=== PATIENT | female | born 1970 | race Caucasian/White ===

== ENCOUNTER 2016-06-11 23:24 | Emergency (ER) | payer OTHER ==
[~2016-06-11] VITALS: Ht 167.6 cm; Wt 50.0 kg
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
[2016-06-12 00:15] VITALS: BP 123/86; PULSE 100; RESP 20; TEMP 97.5; O2SAT 99
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
[2016-06-12 01:01] LABS: AMPHETAMINE, URINE NEG (NEG); BARBITURATES, URINE NEG (NEG); COCAINE, URINE NEG (NEG)
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
== END 2016-06-12 01:24 | disposition left against medical advice (07) ==
LOC: PHED 23:24
DX: R51 Headache (principal); Z53.20 Procedure and treatment not carried out because of patient's decision for unspecified reasons; V49.60XA Unspecified car occupant injured in collision with unspecified motor vehicles in traffic accident, initial encounter
CPT/HCPCS: 70450; 71010; 72125; 80307

== ENCOUNTER 2016-06-14 18:56 | Emergency (ER) | payer OTHER ==
[~2016-06-14] VITALS: Ht 167.6 cm; Wt 50.0 kg
[2016-06-14 19:32] VITALS: BP 95/56; PULSE 88; RESP 18; TEMP 97.8; O2SAT 98
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
[2016-06-14] MEDS ORDERED: SODIUM CHLOR 0.9% 1000 ML INJ 1,000 ML IV ONE (20:00)
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
[2016-06-14 20:20] LABS: HEMATOCRIT 41.1 % (35.0-46.0); MEAN CELL VOLUME 100.3 FL (80.0-100.0); MEAN CORPUSCULAR HEMOGLOBIN 34.3 PG (27.0-34.0); MEAN CORPUSCULAR HGB CONC 34.2 % (32.0-36.0); PLATELET COUNT 146 TH/MM3 (150-450); RED CELL DISTRIBUTION WIDTH 13.8 % (11.6-17.2); WHITE BLOOD COUNT 4.8 TH/MM3 (4.0-11.0)
[2016-06-14 20:23] LABS: HEMO FLAGS AUTO DIFF
[2016-06-14 20:44] LABS: ACETAMINOPHEN LESS THAN 2.0 MCG/ML (10.0-30.0); ALKALINE PHOSPHATASE 71 U/L (45-117); ALT (GPT) 21 U/L (10-53); ANION GAP 8 MEQ/L (5-15); AST (GOT) 43 U/L (15-37); BLOOD UREA NITROGEN 5 MG/DL (7-18); CALCIUM-PROTEIN CORRECTED 7.8 MG/DL (8.5-10.1); CHLORIDE 106 MEQ/L (98-107); GLOMERULAR FILTRATION RATE 114 ML/MIN (>89); POTASSIUM 3.6 MEQ/L (3.5-5.1); SODIUM (NA) 142 MEQ/L (136-145); TOTAL BILIRUBIN ADULT 0.3 MG/DL (0.2-1.0)
[2016-06-14 20:53] LABS: BANDS 1 % (0-6); BASOPHILS 4 % (0-2); CORRECTED NUCLEATED RBC 1 /100 WBC (0-0); EOSINOPHILS 2 % (0-4); NEUTROPHIL # MANUAL DIFF 1.4 TH/MM3 (1.8-7.7); POLYS (SEG NEUTROPHILS) 29 % (16-70); WBC DIFF SAMPLE 100
[2016-06-14 20:54] LABS: OVALOCYTES 1+ (NORMAL)
[2016-06-14 20:56] LABS: PLATELET ESTIMATE SMEAR LOW (NORMAL); PLATELET MORPHOLOGY NORMAL (NORMAL)
[2016-06-14 20:57] LABS: SCAN/DIFF FINAL DIFF MANUAL
[2016-06-14 23:00] VITALS: BP 100/58; PULSE 88; RESP 18; O2SAT 95
[2016-06-15 03:00] VITALS: BP 97/56; PULSE 86; RESP 18; O2SAT 95
[2016-06-15 06:00] VITALS: BP 96/54; PULSE 87; RESP 18; O2SAT 95
== END 2016-06-15 12:45 | disposition home or self-care (01) ==
LOC: NEPA 18:56
DX: F10.94 Alcohol use, unspecified with alcohol-induced mood disorder (principal); F41.8 Other specified anxiety disorders; F17.210 Nicotine dependence, cigarettes, uncomplicated; B19.20 Unspecified viral hepatitis C without hepatic coma; Y90.8 Blood alcohol level of 240 mg/100 ml or more
CPT/HCPCS: 70450; 80053; 80307; 85007; 85027; 96360; 96361; 99285; J7030

== ENCOUNTER 2016-07-09 08:31 | Emergency (ER) | payer SELFPAY ==
[~2016-07-09] VITALS: Ht 167.6 cm; Wt 46.9 kg
[2016-07-09 08:38] VITALS: BP 105/82; PULSE 95; RESP 18; TEMP 97.9; O2SAT 97
[2016-07-09] MEDS ORDERED: SULF10SO3 EACH EYE (09:00)
--- NOTE | 2016-07-09 09:01 | PD ---
HPI Chief Complaint: Eye Problems/Injury Time Seen by Provider: 08:51 Travel History International Travel<30 days: No Contact w/Intl Traveler<30days: No Traveled to known affect area: No History of Present Illness HPI This 46-year-old female is complaining of crusting in her eyes. She says when she wakes up she has to force her eyes open because of the large amount of crust. She has not had fever or chills. It oozes sporadically throughout the day. She does have some photophobia. There is no history of trauma. Both eyes were affected PFSH Past Medical History Autoimmune Disease: No Anxiety: Yes Depression: Yes Cancer: No Cardiovascular Problems: No Diabetes: No Diminished Hearing: No Endocrine: No Gastrointestinal Disorders: No Genitourinary: No Hepatitis: Yes (C) Hiatal Hernia: No Immune Disorder: No Musculoskeletal: No Neurologic: No Psychiatric: No Reproductive: No Respiratory: No Thyroid Disease: No Influenza Vaccination: No ?: Not Menopausal: Yes : 4 Para: 0 Miscarriage: 1 : 3 Past Surgical History AICD: No Eye Surgery: Yes (LEFT EYE) Joint Replacement: No Pacemaker: No Other Surgery: Yes (LEFT ARM ABCESS) Social History Alcohol Use: Yes (Occasionally per patient) Tobacco Use: Yes (1/2 PPD) Substance Use: No Allergies-Medications (Allergen,Severity, Reaction): Coded Allergies: Fire Ant (Verified Allergy, Severe, Anaphylaxis, 07/09/16) *MDRO Multi-Drug Resistant Organism (Verified Allergy, Unknown, 07/09/16) ESBL Klebsiella pneumonie 2013 Reported Meds & Prescriptions Reported Meds & Active Scripts Active No Active Prescriptions or Reported Medications Review of Systems General / Constitutional: No: Fever, Chills Eyes: Positive: Photophobia, Redness, Foreign Body Sensation, Tearing HENT: No: Headaches, Vertigo Cardiovascular: No: Chest Pain or Discomfort, Palpitations Respiratory: No: Cough, Shortness of Breath Gastrointestinal: No: Nausea, Vomiting Genitourinary: No: Urgency, Frequency Hematologic/Lymphatic: No: Easy Bruising Physical Exam Narrative GENERAL: Thin female SKIN: Focused skin assessment warm/dry. HEAD: Atraumatic. Normocephalic. EYES: Pupils equal and round and reactive. There is bilateral conjunctival injection. There is a small amount of drainage from the eye. The anterior chambers are clear. ENT: No nasal bleeding or discharge. Mucous membranes pink and moist. NECK: Trachea midline. No JVD. CARDIOVASCULAR: Regular rate and rhythm. No murmur appreciated. RESPIRATORY: No accessory muscle use. Clear to auscultation. Breath sounds equal bilaterally. GASTROINTESTINAL: Abdomen soft, non-tender, nondistended. Hepatic and splenic margins not palpable. MUSCULOSKELETAL: No obvious deformities. No clubbing. No cyanosis. No edema. NEUROLOGICAL: Awake and alert. No obvious cranial nerve deficits. Motor grossly within normal limits. Normal speech. PSYCHIATRIC: Appropriate mood and affect; insight and judgment normal. Data Data Last Documented VS Vital Signs Date Time Temp Pulse Resp B/P Pulse Ox O2 Delivery O2 Flow Rate FiO2 07/09/16 08:38 97.9 95 18 105/82 97 MDM Medical Decision Making Medical Screen Exam Complete: Yes Emergency Medical Condition: Yes Medical Record Reviewed: Yes Differential Diagnosis Differential includes conjunctivitis, allergic conjunctivitis Narrative Course Patient will be treated with sulfacetamide drops Diagnosis Primary Impression: Conjunctivitis Qualified Code: H10.9 - Conjunctivitis of both eyes, unspecified conjunctivitis type Scripts Sulfacetamide Opth Drops 10 % Soln1 Drop EACH EYE Q4HR #1 BOTTLE Ref 0 Prov:Cleveland Rodas MD 07/09/16 Disposition: 01 DISCHARGE HOME Condition: Stable Cleveland Rodas MD Jul 09, 2016 09:01
== END 2016-07-09 09:06 | disposition home or self-care (01) ==
LOC: PHED 08:31
DX: H10.33 Unspecified acute conjunctivitis, bilateral (principal); F41.8 Other specified anxiety disorders; K75.9 Inflammatory liver disease, unspecified; F17.210 Nicotine dependence, cigarettes, uncomplicated
CPT/HCPCS: 99282

== ENCOUNTER 2017-04-10 05:21 | Emergency (ER) | payer SELFPAY ==
[~2017-04-10] VITALS: Ht 167.6 cm; Wt 47.1 kg
[~2017-04-10 05:21] MED LIST: SULF10SO3 EACH EYE
[2017-04-10 05:27] VITALS: BP 131/81; PULSE 103; RESP 22; TEMP 98.1; O2SAT 97
--- NOTE | 2017-04-10 05:52 | PD ---
HPI Chief Complaint: Cold / Flu Symptoms Time Seen by Provider: 05:32 Travel History International Travel<30 days: No Contact w/Intl Traveler<30days: No Traveled to known affect area: No History of Present Illness HPI The patient is a 46-year-old female that states she has had a cough, sharp, pleuritic chest pain on her right anterior ribs and short of breath for one week. The patient smokes one half pack of cigars daily. She does have a history of alcohol and cocaine abuse. She cannot tell me when her last alcohol was. She states her fever is 99.9 two days ago. PFSH Past Medical History Autoimmune Disease: No Anxiety: Yes Depression: Yes Cancer: No Cardiovascular Problems: No Diabetes: No Diminished Hearing: No Endocrine: No Gastrointestinal Disorders: No Genitourinary: No Hepatitis: Yes (C) Hiatal Hernia: No Immune Disorder: No Musculoskeletal: No Neurologic: No Psychiatric: No Reproductive: No Respiratory: No Thyroid Disease: No Tetanus Vaccination: > 5 Years Influenza Vaccination: No ?: Not Menopausal: Yes : 4 Para: 0 Miscarriage: 1 : 3 Past Surgical History AICD: No Eye Surgery: Yes (LEFT EYE) Joint Replacement: No Pacemaker: No Other Surgery: Yes (LEFT ARM ABCESS) Social History Alcohol Use: Yes (Occasionally per patient) Tobacco Use: Yes (1/2 PPD) Substance Use: No (former ) Allergies-Medications (Allergen,Severity, Reaction): Coded Allergies: fire ant (Unverified Allergy, Severe, Anaphylaxis, 11/10/16) *MDRO Multi-Drug Resistant Organism (Verified Allergy, Unknown, 07/09/16) ESBL Klebsiella pneumonie 2013 Reported Meds & Prescriptions Reported Meds & Active Scripts Active Zithromax Z-Lakhwinder (Azithromycin) 250 Mg Dspk 250 Mg PO DIRECTED 500 MG (2 tabs) day 1, then 1 tab days 2-5. Ibuprofen 600 Mg Tab 600 Mg PO TID Sulfacetamide Opth Drops 10 % Soln 1 Drop EACH EYE Q4HR Review of Systems Except as stated in HPI: all other systems reviewed are Neg Physical Exam Narrative GENERAL: The patient is alert, oriented 3 and slight apparent distress with her right anterior chest pain. Her vital signs show heart rate of 103 but otherwise normal. SKIN: Focused skin assessment warm/dry. No definite needle tracks are seen but there are some wolff and bruises on the volar forearms that are slightly suspicious. HEAD: Atraumatic. Normocephalic. EYES: Pupils equal and round. No scleral icterus. No injection or drainage. ENT: No nasal bleeding or discharge. Mucous membranes pink and moist. NECK: Trachea midline. No JVD. CARDIOVASCULAR: Regular rate and rhythm. No murmur appreciated. RESPIRATORY: No accessory muscle use. Clear to auscultation. Breath sounds equal bilaterally. The patient has tenderness on the right anterior chest wall. Pressure on this area completely reproduces the patient's pain. GASTROINTESTINAL: Abdomen soft, non-tender, nondistended. Hepatic and splenic margins not palpable. MUSCULOSKELETAL: No obvious deformities. No clubbing. No cyanosis. No edema. NEUROLOGICAL: Awake and alert. No obvious cranial nerve deficits. Motor grossly within normal limits. Normal speech. PSYCHIATRIC: Appropriate mood and affect; insight and judgment normal. Data Data Last Documented VS Vital Signs Date Time Temp Pulse Resp B/P (MAP) Pulse Ox O2 Delivery O2 Flow Rate FiO2 04/10/17 06:27 131/81 (98) 135/77 (96) 04/10/17 06:23 98 04/10/17 06:22 Room Air 04/10/17 05:27 98.1 103 22 Orders Orders Electrocardiogram (04/10/17 05:52) Basic Metabolic Panel (Bmp) (04/10/17 05:52) Ckmb (Isoenzyme) Profile (04/10/17 05:52) Complete Blood Count With Diff (04/10/17 05:52) Magnesium (Mg) (04/10/17 05:52) Troponin I (04/10/17 05:52) Ecg Monitoring (04/10/17 05:52) Bilateral Bp Monitoring (04/10/17 05:52) Iv Access Insert/Monitor (04/10/17 05:52) Oximetry (04/10/17 05:52) Oxygen Administration (04/10/17 05:52) Sodium Chloride 0.9% Flush (Ns Flush) (04/10/17 06:00) Chest, Pa & Lat (04/10/17 05:52) Beta Hcg (Quant/Titer) (04/10/17 05:52) Urinalysis - C+S If Indicated (04/10/17 05:58) Drug Screen, Random Urine (04/10/17 05:58) Alcohol (Ethanol) (04/10/17 05:52) Ketorolac Inj (Toradol Inj) (04/10/17 07:15) Potassium Chloride (Kcl) (04/10/17 07:15) Labs Laboratory Tests Test 04/10/17 06:15 04/10/17 06:45 Urine Collection Type CATH Urine Color YELLOW Urine Turbidity CLEAR Urine pH 5.5 Urine Specific Dewitt 1.007 Urine Protein NEG mg/dL Urine Glucose (UA) NEG mg/dL Urine Ketones NEG mg/dL Urine Occult Blood NEG Urine Nitrite NEG Urine Bilirubin NEG Urine Leukocyte Esterase NEG Urine RBC 0-3 /hpf Urine Squamous Epithelial Cells 0-5 /hpf Microscopic Urinalysis Comment CATH-CULT NOT IND Urine Collection Time 06:15 Urine Opiates Screen NEG Urine Barbiturates Screen NEG Urine Amphetamines Screen NEG Urine Benzodiazepines Screen NEG Urine Cocaine Screen NEG Urine Cannabinoids Screen NEG White Blood Count 4.7 TH/MM3 Red Blood Count 4.76 MIL/MM3 Hemoglobin 15.3 GM/DL Hematocrit 45.7 % Mean Corpuscular Volume 96.1 FL Mean Corpuscular Hemoglobin 32.2 PG Mean Corpuscular Hemoglobin Concent 33.5 % Red Cell Distribution Width 13.0 % Platelet Count 168 TH/MM3 Mean Platelet Volume 6.7 FL Neutrophils (%) (Auto) 27.8 % Lymphocytes (%) (Auto) 56.4 % Monocytes (%) (Auto) 14.8 % Eosinophils (%) (Auto) 0.5 % Basophils (%) (Auto) 0.5 % Neutrophils # (Auto) 1.3 TH/MM3 Lymphocytes # (Auto) 2.7 TH/MM3 Monocytes # (Auto) 0.7 TH/MM3 Eosinophils # (Auto) 0.0 TH/MM3 Basophils # (Auto) 0.0 TH/MM3 CBC Comment DIFF FINAL Differential Comment Blood Urea Nitrogen 2 MG/DL Creatinine 0.46 MG/DL Random Glucose 77 MG/DL Calcium Level 8.3 MG/DL Magnesium Level 1.9 MG/DL Sodium Level 137 MEQ/L Potassium Level 3.1 MEQ/L Chloride Level 100 MEQ/L Carbon Dioxide Level 27.8 MEQ/L Anion Gap 9 MEQ/L Estimat Glomerular Filtration Rate 146 ML/MIN Total Creatine Kinase 100 U/L Troponin I LESS THAN 0.02 NG/ML Human Chorionic Gonadotropin, Quant LESS THAN 1 MIU/ML Ethyl Alcohol Level 299 MG/DL [facility] Medical Decision Making Medical Screen Exam Complete: Yes Emergency Medical Condition: Yes Medical Record Reviewed: Yes Interpretation(s) The EKG shows sinus rhythm with an incomplete right bundle-branch block and the ventricular rate is 84. No acute ST elevation or depression is present. The chest x-ray is normal. The urine toxicology screen is negative for all drugs tested. The alcohol level is 299. The CBC is normal. The basic metabolic profile shows a potassium 3.1, calcium of 8.3 but is otherwise normal. Cardiac enzymes are normal and the beta-hCG is less than 1. The urinalysis is normal and culture is not indicated. Differential Diagnosis Chest wall pain, pneumonia, acute coronary syndrome-highly unlikely, alcohol intoxication, other drug intoxication, bronchitis Narrative Course The patient appears to have chest wall pain. She will be given ibuprofen. She also has alcohol intoxication. Diagnosis Primary Impression: Chest wall pain Additional Impressions: Alcohol intoxication Alcohol abuse with alcohol-induced mood disorder Additional Instructions: As we discussed, discontinue alcohol. Also, take the Motrin 3 times daily. Scripts Azithromycin (Zithromax Z-Lakhwinder) 250 Mg Dspk 250 MG PO DIRECTED for Infection, #1 DSPK 0 Refills 500 MG (2 tabs) day 1, then 1 tab days 2-5. Prov: Jefferson Gilliam MD 04/10/17 Ibuprofen (Ibuprofen) 600 Mg Tab 600 MG PO TID, #44 TAB 0 Refills Prov: Jefferson Gilliam MD 04/10/17 Disposition: 01 DISCHARGE HOME Condition: Stable Jefferson Gilliam MD Apr 10, 2017 05:52
[2017-04-10] MEDS ORDERED: SODIUM CHLORIDE 0.9% FLUSH 10 ML FLUSH IVF PRN (06:00)
[2017-04-10 06:23] VITALS: O2SAT 98
--- NOTE | 2017-04-10 06:26 | RADRPT ---
EXAM DATE/TIME: 04/10/2017 06:06 [place] COMPARISON: No previous studies available for comparison. INDICATIONS : Cough, shortness of breath, and pain under right breast. MEDICAL HISTORY : Hepatitis C. SURGICAL HISTORY : None. ENCOUNTER: Initial ACUITY: 1 week PAIN SCORE: 7/10 LOCATION: Bilateral chest FINDINGS: PA and lateral views of the chest demonstrate the lungs to be symmetrically aerated without evidence of mass, infiltrate or effusion. The cardiomediastinal contours are unremarkable. Osseous structure s are intact. CONCLUSION: Normal examination for a patient of this age. Jeremiah Cho MD on April 10, 2017 at 6:23 Board Certified Radiologist. This report was verified electronically.
[2017-04-10 06:27] VITALS: BP_SYST 131; BP_SYST 135; BP_DIAS 77; BP_DIAS 81
[2017-04-10 06:33] LABS: BILIRUBIN, URINE NEG (NEG); BLOOD, URINE NEG (NEG); GLUCOSE,URINE NEG (NEG); KETONE, URINE NEG (NEG); NITRITE,URINE NEG (NEG); PH, URINE 5.5 (5.0-8.5); URINE LEUKOCYTE ESTERASE NEG (NEG)
[2017-04-10 06:41] LABS: URINE COLOR YELLOW (YELLW/STRAW)
[2017-04-10 06:42] LABS: RBC, URINE 0-3 /hpf (0-3); SQUAMOUS EPITHELIAL CELL URINE 0-5 /hpf (0-5)
[2017-04-10 06:58] LABS: AUTOMATED NEUTROPHIL # 1.3 TH/MM3 (1.8-7.7); BASOPHIL % 0.5 % (0.0-2.0); EOSINOPHIL % 0.5 % (0.0-4.0); HEMATOCRIT 45.7 % (35.0-46.0); HEMOGLOBIN 15.3 GM/DL (11.6-15.3); LYMPH % 56.4 % (9.0-44.0); LYMPHOCYTE # 2.7 TH/MM3 (1.0-4.8); MEAN CELL VOLUME 96.1 FL (80.0-100.0); MEAN CORPUSCULAR HEMOGLOBIN 32.2 PG (27.0-34.0); MEAN CORPUSCULAR HGB CONC 33.5 % (32.0-36.0); MEAN PLATELET VOLUME 6.7 FL (7.0-11.0); MONO % 14.8 % (0.0-8.0); MONOCYTE # 0.7 TH/MM3 (0-0.9); NEUT % 27.8 % (16.0-70.0); PLATELET COUNT 168 TH/MM3 (150-450); RED BLOOD COUNT 4.76 MIL/MM3 (4.00-5.30); WHITE BLOOD COUNT 4.7 TH/MM3 (4.0-11.0)
[2017-04-10 07:03] LABS: CHLORIDE 100 MEQ/L (98-107); SODIUM (NA) 137 MEQ/L (136-145)
[2017-04-10] MEDS ORDERED: IBUP-232 PO (07:03)
[2017-04-10 07:05] LABS: CALCIUM 8.3 MG/DL (8.5-10.1)
[2017-04-10 07:06] LABS: BICARBONATE 27.8 MEQ/L (21.0-32.0); BLOOD UREA NITROGEN 2 MG/DL (7-18); GLUCOSE,RANDOM 77 MG/DL (74-106); MAGNESIUM 1.9 MG/DL (1.5-2.5)
[2017-04-10] MEDS ORDERED: ZITHTAB PO (07:08)
[2017-04-10 07:09] LABS: CREATININE 0.46 MG/DL (0.50-1.00); GLOMERULAR FILTRATION RATE 146 ML/MIN (>89)
[2017-04-10 07:14] LABS: TROPONIN I LESS THAN 0.02 NG/ML (0.02-0.05)
[2017-04-10] MEDS ORDERED: KETOROLAC TROMETHAMINE 60 MG/2 ML (IM) VIAL IVP ONE (07:15)
[2017-04-10] MEDS ORDERED: POTASSIUM CHLORIDE 20 MEQ CONTROLLED RELEASE TAB PO ONE (07:15)
[2017-04-10 07:27] VITALS: BP 144/78; PULSE 80; RESP 16; O2SAT 96
[2017-04-10 07:31] VITALS: BP 103/70; PULSE 88; RESP 16; TEMP 98.3; O2SAT 96
--- NOTE | 2017-04-10 15:58 | EKG ---
Date Performed: 04/10/2017 Time Performed: 06:33:12 PTAGE: 46 years EKG: Sinus rhythm RSR' pattern in V1 Since previous tracing, no significant change noted BORDERLINE ECG PREVIOUS TRACING : 10/26/2014 06.53 DOCTOR: Olivier Gutierrez Interpretating Date/Time 04/10/2017 15:56:39
== END 2017-04-10 07:44 | disposition home or self-care (01) ==
LOC: PHED 05:21
DX: R07.89 Other chest pain (principal); F10.129 Alcohol abuse with intoxication, unspecified; R06.02 Shortness of breath; F17.200 Nicotine dependence, unspecified, uncomplicated
CPT/HCPCS: 71046; 80048; 80307; 81001; 82550; 83735; 84484; 84702; 85025; 93005; 96374; 99284; J1885